=== PATIENT | female | born 1950 | race Caucasian/White ===

== ENCOUNTER 2020-01-16 00:54 | Outpatient (CLI) | payer MEDICARE, SELFPAY ==
[2020-01-16 16:32] LABS: SARS-CoV-2 RNA PCR Negative
== END 2020-01-16 00:55 | disposition home or self-care (01) ==
LOC: ANHCOVIDDT 00:54
PROVIDERS: PCP Family Medicine; Visit Provider Internal Medicine Gastroenterology
DX: Z01.812 Encounter for preprocedural laboratory examination (principal); Z20.828 Contact with and (suspected) exposure to other viral communicable diseases
CPT/HCPCS: 87635; C9803; U0003

== ENCOUNTER 2020-01-18 00:21 | Day surgery (SDC) | payer MEDICARE, SELFPAY ==
[2020-01-06 12:19] VITALS: BMI 24.3
[2020-01-18 08:35] VITALS: BP 124/85; PULSE 79; RESP 16; TEMP 36.1; O2SAT 97; BMI 23.3
[2020-01-18] MEDS: LACTATED RINGERS 1,000 ML 150 ML IV CONT (08:42)
--- NOTE | 2020-01-18 08:45 | WPDANESEPPF ---
Anes - Initial Pre Proc Eval Procedure: Operation Date: 01/18/20 09:00 Proposed Procedures p Screening Colonoscopy - Jake Obregon MD Date/Time: 01/18/20 08:45 Surgeon: Jake Obregon MD Pre Op Diagnosis: Neoplasm Screening for Colon Ca Patient Data Age: 69 Gender: F Height: 5 ft 6 in Weight: 65.6 kg Last Vital Signs Temp 36.1 C L 01/18/20 08:35 Pulse 79 01/18/20 08:35 Resp 16 01/18/20 08:35 BP 124/85 01/18/20 08:35 Pulse Ox 97 01/18/20 08:35 Allergies Allergy/AdvReac Type Severity Reaction Status Date / Time No Known Allergies Allergy Unverified 01/18/20 08:31 Home Medications Medication Instructions Recorded Confirmed Type irbesartan 300 mg tablet 300 mg PO DAILY #90 tablet 09/07/19 01/06/20 Rx atorvastatin 10 mg tablet 10 mg PO DAILY #90 tablet 12/02/19 01/06/20 Rx peg 3350-electrolytes 236 240 ml PO Q10M #4000 ml 12/28/19 01/06/20 Rx gram-22.74 gram-6.74 gram-5.86 gram solution Patient hx anesthesia problems: none Family hx anesthesia problems: none PMFSH Past Medical History Medical History Chronic diarrhea Colon, diverticulosis HLD (hyperlipidemia) Family History Family History Father Hypertension Family history of diabetes mellitus in first degree relative Family history of malignant melanoma Family history of coronary artery disease Mother Hypertension Family history of coronary artery disease Social History Social History Years smoked: 4 Smoking status: Former smoker Tobacco type: cigarettes Second hand tobacco smoke exposure: No Alcohol intake: current Drinks per week: 3 Substance use: never Substance use type: does not use Living arrangements: with family Gender identity (if verbalized by the patient): Female Spiritual care concerns: No Anes - Eval Final PreProcedure Day of Procedure 01/18/20 08:45 Patient weight: normal Heart: regular rate and rhythm Lungs: clear to auscultation Airway: Mallampati scale class II Neurological: alert and oriented Last oral intake: >/= 8 hours ASA classification: II Emergent: no Anesthetic plan: proceed Anesthesia type and monitoring: general GIVS and standard monitoring Informed Consent: The patient's anesthetic plan and its attendant risks and benefits were discussed with the patient/family/POA. Questions were solicited and answers provided to the satisfaction of the patient/family/POA.
--- NOTE | 2020-01-18 09:09 | PM.HPGS ---
History of Present Illness History of Present Illness Consent: Risks, benefits, and alternatives have been discussed and questions answered. Patient agrees to proceed with procedure. Chief complaint: Neoplasm Screening for Colon Ca Narrative: Hilary Null is a 69 year old female with diarrhea over a year, serology for celiac negative and normal stool samples. Last colonoscopy 5 years ago. Review of Systems Constitutional: Constitutional: Denies headache(s) and Denies weakness Eyes: Eyes: Denies blurry vision ENT: Reports Normal hearing present, Denies headache(s) and Denies neck pain Cardiovascular: Cardiovascular: Denies chest pain and Denies dyspnea Respiratory: Respiratory: Denies dyspnea Gastrointestinal: Gastrointestinal: Reports no additional gastrointestinal complaints Genitourinary: Genitourinary: Denies dysuria Musculoskeletal: Musculoskeletal: Denies neck pain Integumentary/Breasts: Skin/Breast: Denies dry skin Neurologic: Reports Normal hearing present, Denies headache(s) and Denies weakness Psychiatric: Psychiatric: Denies anxiety Endocrine: Endocrine: Denies change in body appearance Hematologic/Lymphatic: Hematologic/Lymphatic: Denies easy bleeding Allergic/Immunologic: Allergic/Immunologic: Denies urticaria PMFSH Past Medical History Medical History Chronic diarrhea Colon, diverticulosis HLD (hyperlipidemia) Family History Family History Father Hypertension Family history of diabetes mellitus in first degree relative Family history of malignant melanoma Family history of coronary artery disease Mother Hypertension Family history of coronary artery disease Social History Social History Years smoked: 4 Smoking status: Former smoker Tobacco type: cigarettes Second hand tobacco smoke exposure: No Alcohol intake: current Drinks per week: 3 Substance use: never Substance use type: does not use Living arrangements: with family Gender identity (if verbalized by the patient): Female Spiritual care concerns: No Meds Home Medications and Allergies Home Medications Medication Instructions Recorded Confirmed Type irbesartan 300 mg tablet 300 mg PO DAILY #90 tablet 09/07/19 01/06/20 Rx atorvastatin 10 mg tablet 10 mg PO DAILY #90 tablet 12/02/19 01/06/20 Rx peg 3350-electrolytes 236 240 ml PO Q10M #4000 ml 12/28/19 01/06/20 Rx gram-22.74 gram-6.74 gram-5.86 gram solution Allergies Allergy/AdvReac Type Severity Reaction Status Date / Time No Known Allergies Allergy Unverified 01/18/20 08:31 Vital Signs Vital Signs - 24 hr 01/18/20 08:35 Temperature 97.0 F L Pulse Rate 79 Respiratory Rate 16 Blood Pressure 124/85 Pulse Oximetry 97 Exam Const: General: comfortable and no acute distress HENMT: General nose exam: Normal nares present Eyes: General: appearance normal, both eyes and all related structures Neck: Neck: no JVD Resp: Auscultation: clear to auscultation bilaterally Cardio: Rate: regular rate Rhythm: regular rhythm GI: Inspection: non-distended GI Palp: Yes Soft to palpation Skin: General skin exam: normal color Neuro: General: gait normal Speech: normal speech Extrem: General: normal to inspection Psych: Mental Status: mental status grossly normal Assessment and Plan Assessment and plan (1) Chronic diarrhea: Code(s): K52.9 - Noninfective gastroenteritis and colitis, unspecified Status: Acute Assessment and Plan: will proceed with colonoscopy and biopsies (2) Colon, diverticulosis: Code(s): K57.30 - Diverticulosis of large intestine without perforation or abscess without bleeding Status: Acute
[2020-01-18 09:32] VITALS: BP 106/62; PULSE 77; RESP 32; O2SAT 97
[2020-01-18 09:42] VITALS: BP 118/73; PULSE 66; RESP 21; O2SAT 97
[2020-01-18 09:52] VITALS: BP 121/78; PULSE 63; RESP 16; O2SAT 99
== END 2020-01-18 10:00 | disposition home or self-care (01) ==
PROVIDERS: PCP Family Medicine; Visit Provider Internal Medicine Gastroenterology
PROC: 0DJD8ZZ Inspection of Lower Intestinal Tract, Via Natural or Artificial Opening Endoscopic (ICD-10-PCS; CPT 45378; principal; 2020-01-18 09:00)
DX: R19.7 Diarrhea, unspecified (principal); K62.89 Other specified diseases of anus and rectum; K64.8 Other hemorrhoids; K57.30 Diverticulosis of large intestine without perforation or abscess without bleeding; E78.5 Hyperlipidemia, unspecified; Z87.891 Personal history of nicotine dependence
CPT/HCPCS: 45380; 88305; J2704; J7120

== ENCOUNTER 2024-11-25 12:29 | Outpatient (CLI) | payer MEDICARE, SELFPAY ==
--- NOTE | ~2024-11-25 | DEXA_ITS ---
Bone Density Report Name: CAROLYN EARLY Age: 74 Sex: Female Ethnicity: White Date of : 1950 Indication: postmenopausal; screening for osteoporosis; height loss; Referring Provider: Haroon Salcido Study: Bone densitometry was performed. Exam Date: November 25, 2024 Accession number: [id number] Bone Density: Region BMD T-score Z-score Classification AP Spine(L1-L4) 0.932 -1.0 1.3 Normal Femoral Neck (Left) 0.666 -1.7 0.4 Osteopenia Total Hip (Left) 0.813 -1.1 0.7 Osteopenia Femoral Neck (Right) 0.652 -1.8 0.3 Osteopenia Total Hip (Right) 0.770 -1.4 0.3 Osteopenia Total Hip Mean 0.792 -1.3 0.5 Osteopenia World Health Organization criteria for BMD impression classify patients as: Normal (T-score at or above -1.0), Osteopenia (T-score between -1.0 and -2.5), or Osteoporosis (T-score at or below -2.5). 10-year Fracture Risk(1): Major Osteoporotic Fracture 12% Hip Fracture 2.5% Reported Risk Factors: [place] (), Neck BMD=0.652, BMI=26.5 (1) FRAX(R) Version 3.08. Fracture probability calculated for an untreated patient. Fracture probability may be lower if the patient has received treatment. Clinical Information Provided by Patient: Has used the following medications: HRT (i.e. estrogen/hormone therapy), Vitamin D, Calcium, MTV; HRT x 1 year Patient maximum height was 66.0 Menopause Age: 51 Drinks caffeinated beverages Onset of menses at age 12 Number of children 4 Impression: The patient has low bone mass, based on the Right Femoral Neck T-score. The patient has an estimated ten-year risk of hip fracture of 2.5% and an estimated ten-year risk of major fracture of 12%, based on the WHO FRAX algorithm. Discussion: BONE DENSITY IS LOW AT ONE OR MORE SKELETAL SITES. This patient's lowest T-score is low at one or more skeletal sites. It meets the World Health Organization's (WHO) criteria for ?low bone mass? (T-score between -1.0 and -2.5). The patient's 10-year risk of fracture as calculated by FRAX is less than the threshold where pharmacological therapy is recommended by the National Osteoporosis Foundation (NOF). However, all treatment decisions require clinical judgment and consideration of individual patient factors, including patient preferences, comorbidities, previous drug use, risk factors not captured in the FRAX model (e.g., frailty, falls, vitamin D deficiency, increased bone turnover, interval significant decline in bone density) and possible under or overestimation of fracture risk by FRAX. The patient should follow a healthful lifestyle (good nutrition with adequate calcium and vitamin D, and appropriate weight-bearing exercise). Follow-Up: Consider repeating this study in 2 to 3 years to reassess this patient's status, or sooner if there is some new clinical indication. Reported by: RUDDY on 11/25/2024 12:57:00 PM. Reviewed, dictated and finalized at location A.
== END 2024-11-25 12:30 | disposition home or self-care (01) ==
LOC: MICIMG 12:30
PROVIDERS: PCP Family Medicine; Visit Provider Family Medicine
DX: Z78.0 Asymptomatic menopausal state (principal); M85.89 Other specified disorders of bone density and structure, multiple sites
CPT/HCPCS: 77080